=== PATIENT | male | born 1960 | race Caucasian/White ===

== ENCOUNTER → 2023-10-12 | Outpatient (CLI) | payer BC ==
[2023-10-12 08:07] LABS: Mean Corpuscular Hemoglobin 35.5 pg (28.0-32.0); Platelet Count (auto) 107 10^3/uL (140-450)
[2023-10-12 08:09] LABS: Hematocrit 46.4 % (41.0-53.0); Hemoglobin 15.8 g/dL (13.5-17.5); Mean Corpuscular Volume 104.3 fL (80.0-100.0); Red Blood Cells 4.45 10^6/uL (4.5-5.90); Red Cell Distribution Width 13.3 % (11.8-14.3)
[2023-10-12 08:28] LABS: Band Neutrophils % (manual) 0; Basophils % (manual) 0 (0.0-2.0); Blast Cells 0; Metamyelocytes % 0; Myelocytes % 0; Promyelocytes % 0; White Blood Cell 43.7 10^3/uL (4.4-10.8)
[2023-10-12 08:29] LABS: Alanine Aminotransferase 18 U/L (7-40); Albumin 4.4 g/dL (3.2-4.8); Alkaline Phosphatase 117 U/L (46-116); Anion Gap 4 (5-15); Aspartate Aminotransferase 16 U/L (13-40); BUN/Creatinine Ratio 14.9 (10.0-20.0); Blood Urea Nitrogen 13 mg/dL (9-23); Calcium 9.7 mg/dL (8.7-10.4); Carbon Dioxide 25 mmol/L (20-30); Chloride 111 mmol/L (98-107); Glucose 103 mg/dL (74-106); Potassium 4.6 mmol/L (3.5-5.1); Sodium 140 mmol/L (136-145); Total Protein 6.5 g/dL (5.7-8.2)
[2023-10-12 08:30] LABS: Bilirubin, Total 0.4 mg/dL (0.2-1.0)
[2023-10-12 08:56] LABS: Eosinophils % (manual) 1 (0-7); Lymphocytes % (manual) 33 (10.0-50.0); Monocytes % (manual) 35 (0-12); Reactive Lymphocytes 1; Smudge Cells 21 /100 WBC
[2023-10-12 08:57] LABS: Macrocytosis Slight; Platelet Estimate Decreased
== END | disposition home or self-care (01) ==
LOC: LAB 07:17
PROVIDERS: ATTEND Student in an Organized Health Care Education/Training Program
DX: C91.10 Chronic lymphocytic leukemia of B-cell type not having achieved remission (principal)
CPT/HCPCS: 36415; 80053; 83615; 85007; 85027

== ENCOUNTER → 2024-02-16 | Outpatient (CLI) | payer BC ==
[2024-02-16 08:08] LABS: Red Blood Cells 4.54 10^6/uL (4.5-5.90)
[2024-02-16 08:10] LABS: Hematocrit 47.6 % (41.0-53.0); Mean Corpuscular Hemoglobin 35.2 pg (28.0-32.0); Mean Corpuscular Hgb Conc. 33.6 g/dL (32.0-36.0); Mean Corpuscular Volume 104.9 fL (80.0-100.0); Platelet Count (auto) 116 10^3/uL (140-450); Red Cell Distribution Width 13.7 % (11.8-14.3)
[2024-02-16 08:20] LABS: Alanine Aminotransferase 26 U/L (7-40); Albumin 4.4 g/dL (3.2-4.8); Alkaline Phosphatase 119 U/L (46-116); Anion Gap 4 (5-15); Aspartate Aminotransferase 17 U/L (13-40); Bilirubin, Total 0.5 mg/dL (0.2-1.0); Blood Urea Nitrogen 19 mg/dL (9-23); Calcium 10.2 mg/dL (8.7-10.4); Carbon Dioxide 26 mmol/L (20-31); Chloride 110 mmol/L (98-107); Cholesterol 149 mg/dL (< 200); Glucose 108 mg/dL (74-106); HDL Cholesterol 34 mg/dL (40-59); LDL Cholesterol 89 mg/dL (< 100); Potassium 4.3 mmol/L (3.5-5.1); Sodium 140 mmol/L (136-145); Total Protein 6.5 g/dL (5.7-8.2); Triglycerides 186 mg/dL (< 150)
[2024-02-16 08:22] LABS: Thyroid Stimulating Hormone 1.79 uIU/mL (0.55-4.78)
[2024-02-16 08:28] LABS: White Blood Cell 50.1 10^3/uL (4.4-10.8)
[2024-02-16 08:30] LABS: Band Neutrophils % (manual) 0; Basophils % (manual) 0 (0.0-2.0); Blast Cells 0; Metamyelocytes % 0; Myelocytes % 0; Promyelocytes % 0
[2024-02-16 12:37] LABS: Eosinophils % (manual) 1 (0-7); Lymphocytes % (manual) 70 (10.0-50.0); Monocytes % (manual) 1 (0-12); Reactive Lymphocytes 21
[2024-02-16 12:38] LABS: Macrocytosis Slight; Platelet Estimate Decreased
== END | disposition home or self-care (01) ==
LOC: LAB 07:25
PROVIDERS: ATTEND Nurse Practitioner Family
DX: Z00.01 Encounter for general adult medical examination with abnormal findings (principal); C91.10 Chronic lymphocytic leukemia of B-cell type not having achieved remission; E78.5 Hyperlipidemia, unspecified; R35.1 Nocturia
CPT/HCPCS: 36415; 80053; 80061; 83615; 84153; 84443; 85007; 85027

== ENCOUNTER 2024-05-07 07:17 | Day surgery (SDC) | payer BC ==
[2024-05-03 10:48] LABS: Hematocrit 47.6 % (41.0-53.0); Mean Corpuscular Hemoglobin 34.8 pg (28.0-32.0); Mean Corpuscular Hgb Conc. 33.6 g/dL (32.0-36.0); Mean Corpuscular Volume 103.5 fL (80.0-100.0); Platelet Count (auto) 113 10^3/uL (140-450); Red Cell Distribution Width 13.8 % (11.8-14.3)
[2024-05-03 10:53] LABS: INR 0.92 (0.9-1.15); Partial Thromboplastin Time 29.3 SEC (24.5-34.5); Prothrombin Time 9.8 sec (9.3-11.8)
[2024-05-03 11:18] LABS: Alanine Aminotransferase 23 U/L (7-40); Anion Gap 4 (5-15); Blood Urea Nitrogen 18 mg/dL (9-23); Calcium 10.2 mg/dL (8.7-10.4); Carbon Dioxide 28 mmol/L (20-31); Glucose 77 mg/dL (74-106); Potassium 4.8 mmol/L (3.5-5.1); Sodium 140 mmol/L (136-145); Total Protein 7.1 g/dL (5.7-8.2)
[2024-05-03 11:19] LABS: Bilirubin, Total 0.4 mg/dL (0.2-1.0)
[2024-05-03 11:20] LABS: Albumin 4.8 g/dL (3.2-4.8); Alkaline Phosphatase 141 U/L (46-116); Aspartate Aminotransferase 12 U/L (13-40); Chloride 108 mmol/L (98-107)
[2024-05-03 11:45] LABS: White Blood Cell 45.7 10^3/uL (4.4-10.8)
[2024-05-03 11:47] LABS: Band Neutrophils % (manual) 0; Basophils % (manual) 0 (0.0-2.0); Blast Cells 0; Eosinophils % (manual) 0 (0-7); Metamyelocytes % 0; Monocytes % (manual) 0 (0-12); Myelocytes % 0; Promyelocytes % 0
[2024-05-03 12:18] LABS: Lymphocytes % (manual) 84 (10.0-50.0); Reactive Lymphocytes 12
[2024-05-03 12:19] LABS: Macrocytosis Slight; Platelet Estimate Decreased; Smudge Cells 8 /100 WBC
[~2024-05-07] VITALS: Ht 170.2 cm; Wt 83.5 kg
[~2024-05-07 07:17] MED LIST: ASPI-543 PO; MULT-1018 PO; NAPR-957 PO; ROSU5TAB5 PO
[2024-05-07] MEDS ORDERED: FLUMAZENIL 0.1 MG/ML INJ 10ML MDV IV ONE (07:35)
[2024-05-07] MEDS ORDERED: NALOXONE HCL 0.4 MG/ML VIAL ONE (07:35)
[2024-05-07] MEDS ORDERED: diphenhdrAMINE HCL 50 MG/1 ML VL ONE (07:35)
[2024-05-07] MEDS: MIDAZOLAM HCL 2MG/2ML 2ml VIAL (1mg/ml) ONE (08:22)
[2024-05-07] MEDS: fentaNYL CITRATE 100 MCG/2 ML VL ONE (08:22)
--- NOTE | 2024-05-07 09:03 | DVHNC2 ---
Procedure - DATE OF PROCEDURE: May 07, 2024 SURGEON: MALIK LOUIS MD REFERRING PROVIDER: Solitario Jacinto MD PROCEDURE PERFORMED: 1 Colonoscopy with moderate sedation 2. Colonoscopy with hot snare polypectomy 3. Colonoscopy with cold snare polypectomy 4. Colonoscopy with cold biopsy polypectomy 5. Colonoscopy with Endoclip placement PRE-PROCEDURE DIAGNOSIS: 1. Colon cancer screening 2. History of colon polyps INDICATIONS FOR PROCEDURE: The patient is a 63-year-old male presents for outpatient colonoscopy for prior history of colon polyps. Last colonoscopy was done air [facility] approximately three years ago MEDICATIONS USED: 6 mg of Versed IV and 100 mcg IV given in incremental doses DETAILS OF THE PROCEDURE: Informed consent was obtained after risks, benefits, and alternatives, were discussed at length with the patient. The patient gave consent to the procedure as well as the medication used for sedation. The patient was placed in the left lateral decubitus position. Digital rectal exam showed internal hemorrhoids and external hemorrhoids. An Olympus variable torsion pediatric colonoscope was inserted into the rectum and advanced to the cecum. The cecum was identified by the ileocecal valve and the appendiceal orifice. The scope was then withdrawn. The patient had small amounts of stool throughout the colon. It was a fair preparation. Patient had one cecal polyp removed with cold snare. Three ascending colon polyps removed with cold snare and hot snare. The larger one removed with hot snare measured approximately 2 c m in the small once with cold snare measured 3 mm and 5 mm superior patient had a descending colon polyp removed with hot snare. There were sigmoid polyps removed with cold biopsy forceps. Patient had mild left-sided diverticulosis retroflexion showed internal hemorrhoids the patient tolerated the procedure well. [facility] BOWEL PREP SCORE: 6 COLONOSCOPY START TIME: 830 CECUM TIME: 833 COLONOSCOPY END TIME:900 IMPRESSION: 1. Numerous colon polyps 2. Mild left-sided diverticulosis 3. Small internal external hemorrhoids 4. Fair preparation RECOMMENDATIONS: 1. Follow up in GI clinic for procedure and pathology results 2. High-fiber diet 3. Follow up with primary care physician 4. Repeat colonoscopy in one year with two day prep unless otherwise indicated by pathology, or symptoms, or findings. I WOULD LIKE TO THANK DR. JACINTO FOR THIS REFERRAL MALIK LOUIS MD May 07, 2024 09:03
[2024-05-07 09:05] VITALS: PULSE 89; RESP 11; TEMP 98.2; O2SAT 96
== END 2024-05-07 09:44 | disposition home or self-care (01) ==
LOC: GI 07:17
PROVIDERS: ATTEND Specialist
DX: Z12.11 Encounter for screening for malignant neoplasm of colon (principal); K57.30 Diverticulosis of large intestine without perforation or abscess without bleeding; K64.8 Other hemorrhoids; K64.4 Residual hemorrhoidal skin tags; Z86.0100 Personal history of colon polyps, unspecified; D12.0 Benign neoplasm of cecum; D12.2 Benign neoplasm of ascending colon
CPT/HCPCS: 36415; 45380; 45385; 80053; 85007; 85027; 85610; 85730; 88305; J2250; J3010; 99152; 99153

== ENCOUNTER → 2024-07-06 | Outpatient (CLI) | payer BC ==
[2024-07-06 14:34] LABS: Hematocrit 44.7 % (41.0-53.0); Hemoglobin 15.3 g/dL (13.5-17.5); Mean Corpuscular Hemoglobin 35.5 pg (28.0-32.0); Mean Corpuscular Hgb Conc. 34.2 g/dL (32.0-36.0); Mean Corpuscular Volume 103.9 fL (80.0-100.0); Platelet Count (auto) 114 10^3/uL (140-450); Red Cell Distribution Width 13.4 % (11.8-14.3)
[2024-07-06 14:51] LABS: Alanine Aminotransferase 22 U/L (7-40); Albumin 4.6 g/dL (3.2-4.8); Anion Gap 6 (5-15); Aspartate Aminotransferase 15 U/L (13-40); BUN/Creatinine Ratio 19.3 (10.0-20.0); Blood Urea Nitrogen 17 mg/dL (9-23); Calcium 9.9 mg/dL (8.7-10.4); Carbon Dioxide 23 mmol/L (20-31); Potassium 4.5 mmol/L (3.5-5.1); Sodium 140 mmol/L (136-145); Total Protein 6.5 g/dL (5.7-8.2)
[2024-07-06 14:53] LABS: Alkaline Phosphatase 122 U/L (46-116); Bilirubin, Total 0.3 mg/dL (0.2-1.0); Chloride 111 mmol/L (98-107); Glucose 119 mg/dL (74-106)
[2024-07-06 15:02] LABS: White Blood Cell 48.5 10^3/uL (4.4-10.8)
[2024-07-06 15:06] LABS: Basophils % (manual) 0 (0.0-2.0); Blast Cells 0; Eosinophils % (manual) 0 (0-7); Metamyelocytes % 0; Monocytes % (manual) 0 (0-12); Myelocytes % 0; Promyelocytes % 0
[2024-07-06 16:48] LABS: Band Neutrophils % (manual) 0; Lymphocytes % (manual) 20 (10.0-50.0)
[2024-07-06 16:49] LABS: Anisocytosis Slight; Macrocytosis Slight; Platelet Estimate Adequate; Reactive Lymphocytes 69
== END | disposition home or self-care (01) ==
LOC: LAB 14:10
PROVIDERS: ATTEND Student in an Organized Health Care Education/Training Program
DX: C91.10 Chronic lymphocytic leukemia of B-cell type not having achieved remission (principal)
CPT/HCPCS: 36415; 80053; 83615; 85007; 85027

== ENCOUNTER 2024-12-29 13:39 | Outpatient (CLI) | payer BC ==
[2024-12-29 13:56] LABS: Hematocrit 45.6 % (41.0-53.0); Hemoglobin 15.6 g/dL (13.5-17.5); Mean Corpuscular Hemoglobin 35.9 pg (28.0-32.0); Mean Corpuscular Volume 105.4 fL (80.0-100.0)
[2024-12-29 14:15] LABS: Alanine Aminotransferase 18 U/L (7-40); Albumin 4.6 g/dL (3.2-4.8); Anion Gap 6 (5-15); BUN/Creatinine Ratio 26.2 (10.0-20.0); Blood Urea Nitrogen 22 mg/dL (9-23); Calcium 9.7 mg/dL (8.7-10.4); Carbon Dioxide 28 mmol/L (20-31); Chloride 106 mmol/L (98-107); Glucose 84 mg/dL (74-106); Potassium 4.4 mmol/L (3.5-5.1); Sodium 140 mmol/L (136-145); Total Protein 6.9 g/dL (5.7-8.2)
[2024-12-29 14:19] LABS: Alkaline Phosphatase 130 U/L (46-116); Bilirubin, Total 0.2 mg/dL (0.2-1.0)
[2024-12-29 15:31] LABS: Total Cells Counted 100.0 (100)
[2024-12-29 15:32] LABS: Anisocytosis Slight; Macrocytosis Moderate
== END 2024-12-29 17:00 | disposition home or self-care (01) ==
LOC: LAB 13:39
PROVIDERS: ATTEND Student in an Organized Health Care Education/Training Program
DX: C91.10 Chronic lymphocytic leukemia of B-cell type not having achieved remission (principal)
CPT/HCPCS: 36415; 80053; 83615; 85007; 85027

== ENCOUNTER 2025-01-10 08:19 | Outpatient (CLI) | payer BC ==
[2025-01-10 08:38] LABS: Hematocrit 46.1 % (41.0-53.0); Hemoglobin 16.0 g/dL (13.5-17.5); Mean Corpuscular Hemoglobin 36.0 pg (28.0-32.0); Mean Corpuscular Volume 103.9 fL (80.0-100.0)
[2025-01-10 09:06] LABS: Alanine Aminotransferase 20 U/L (7-40); Albumin 4.5 g/dL (3.2-4.8); Anion Gap 7 (5-15); BUN/Creatinine Ratio 20.5 (10.0-20.0); Blood Urea Nitrogen 17 mg/dL (9-23); Calcium 9.5 mg/dL (8.7-10.4); Carbon Dioxide 26 mmol/L (20-31); Cholesterol 143 mg/dL (< 200); Glucose 100 mg/dL (74-106); Potassium 4.7 mmol/L (3.5-5.1); Sodium 142 mmol/L (136-145); Total Protein 6.8 g/dL (5.7-8.2)
[2025-01-10 09:07] LABS: Bilirubin, Total 0.4 mg/dL (0.2-1.0)
[2025-01-10 09:10] LABS: Alkaline Phosphatase 162 U/L (46-116); Chloride 109 mmol/L (98-107); HDL Cholesterol 30 mg/dL (40-59); Triglycerides 273 mg/dL (< 150)
[2025-01-10 10:56] LABS: Total Cells Counted 100.0 (100)
[2025-01-10 10:57] LABS: Macrocytosis Slight
== END 2025-01-10 17:00 | disposition home or self-care (01) ==
LOC: LAB 08:19
PROVIDERS: ATTEND Nurse Practitioner Family
DX: C91.10 Chronic lymphocytic leukemia of B-cell type not having achieved remission (principal); E78.5 Hyperlipidemia, unspecified; Z00.01 Encounter for general adult medical examination with abnormal findings
CPT/HCPCS: 36415; 80053; 80061; 84153; 84443; 85007; 85027